=== PATIENT | female | born 1995 | race Caucasian/White ===

== ENCOUNTER 2019-10-27 10:16 | Observation (INO) | payer OTHER ==
[~2019-10-27] VITALS: Ht 170.2 cm; Wt 109.4 kg
--- NOTE | 2019-10-27 11:35 | NUR ---
PATIENT ARRIVED TO ROOM 322-2 VIA EMS. PATIENT SETTELED INTO ROOM.
[2019-10-27 12:10] VITALS: BP 114/54; PULSE 59; TEMP 98.2
--- NOTE | 2019-10-27 12:23 | NUR ---
NOTIFIED OF PATIENT ARRIVAL TO ROOM 322-2. NO ORDERS AT THIS TIME.
[2019-10-27] MEDS ORDERED: EFFEXOR 75M75 MG/TAB PO (12:39)
[2019-10-27] MEDS ORDERED: MOTRIN 800800 MG/TAB PO (12:40)
[2019-10-27] MEDS ORDERED: MAGNESIUM200 MG PO (12:40)
--- NOTE | 2019-10-27 14:07 | NUR ---
PATIENT REPORTS FEELING NAUSEATED AFTER RECEIVING IV ANTIBIOTIC. PATIENT GIVEN PRN IV ZOFRAN. WILL CONTINUE TO MONITOR.
[2019-10-27 15:12] VITALS: BP 125/56; PULSE 63; TEMP 98.8
[2019-10-27 16:10] VITALS: BP 125/56; PULSE 63; TEMP 98.8
--- NOTE | 2019-10-27 16:30 | NUR ---
VORB PHENERGAN 12.5 MG IV Q6H PRN FROM DR. CHUNG TO THIS NURSE.
--- NOTE | 2019-10-27 17:15 | NUR ---
PATIENT GIVEN PRN IV PHENERGAN AFTER EPISODE OF EMESIS WITHOUT ANY RELIEF FROM IV ZOFRAN. WILL CONTINUE TO MONITOR.
--- NOTE | 2019-10-27 18:33 | NUR ---
PATIENT STATES THAT SHE TAKES AMBIEN AT BEDTIME. PATIENT DID NOT REPORT IT IN HER MEDICATION REVIEW. DR. CHUNG CALLED AND NOTIFIED. TORB TO CONTINUE HOME DOSE OF AMBIEN 10 MG PO QHS.
[2019-10-27 19:27] VITALS: BP 101/58; PULSE 67; TEMP 99.1
--- NOTE | 2019-10-27 22:28 | NUR ---
IN TO ASSESS PATIENT. SHE IS ON THE PHONE WITH HER SIGNIFICANT OTHER AND THE BABY WAS CRYING. SHE HAD CALLED OUT FOR PAIN MEDICATION. WHEN NURSE ENTERED WITH TYLENOL PATIENT GAVE HER A WEIRD LOOK. PATIENT SAID THE STUFF IN MY IV. THIS NURSE EDUCATED PATIENT ABOUT WORKING UP THE LADDER ON PAIN MEDICATION TO SEE WHAT HELPS WITH THE PAIN. EDUCATED THE PATIENT THAT IF SHE IS STILL HAVING PAIN TO LET ME KNOW AND WE CAN GO FROM THERE
[2019-10-28] VITALS (14 sets, daily range): BP systolic 109–151; BP diastolic 53–94; PULSE 50–86; TEMP 97.9–99.2
--- NOTE | 2019-10-28 03:40 | NUR ---
PATIENT CALLED AND REQUESTED PAIN MEDICATIONS. NURSE IN ROOM TO VISIT WITH PATIENT. TO THIS NURSE IT SEEMED IF TYLENOL WORKED FOR THE PATIENT BECAUSE AFTER GIVING THE DOSE SHE DID NOT CALL COMPLAINING OF ANY PAIN. SHE SAID IT DID NOT HELP BUT SHE FELL ASLEEP. SAID THE PAIN WAS WORSE NOW. PRN MORPHINE WAS GIVEN
--- NOTE | 2019-10-28 06:03 | NUR ---
PATIENT TOOK TYLENOL AT HS AND THEN FELL ASLEEP. SAID THAT THE TYLENOL DID NOT HELP WITH HER PAIN AT ALL THOUGH. PATIENT WAS ABLE TO SLEEP THROUGH THE NIGHT AND HAS BEEN VERY SLEEPY THROUGH THE SHIFT. DENIES ANY NEEDS AT THIS TIME. WILL REPORT OFF TO DAY SHIFT.
[2019-10-28 07:04] LABS: HEMATOCRIT 37.4 % (37.0-47.0); HEMOGLOBIN 11.6 g/dl (12.5-16.0); MEAN CELL VOLUME 89 fl (80.0-100.0); MEAN CORPUSCULAR HEMOGLOBIN 28 pg (27.0-31.0); MEAN CORPUSCULAR HGB CONC 31 g/dl (33.0-37.0); PLATELET COUNT 276 K/mm3 (130-400); RED BLOOD COUNT 4.22 M/mm3 (4.10-5.30); REDCELL DISTRIBUTION WIDTH-CV 15.7 % (11.5-14.5)
[2019-10-28 07:13] LABS: ALBUMIN 3.2 gm/dL (3.5-5.0); BILIRUBIN,TOTAL 0.5 mg/dL (0.0-1.0); CALCIUM 8.2 mg/dL (8.4-10.2); CREATININE, serum 0.9 (0.52-1.25); POTASSIUM 3.9 mmol/L (3.4-5.0); TOTAL PROTEIN 6.2 gm/dL (6.4-8.2)
--- NOTE | 2019-10-28 09:07 | NUR ---
SW met with the patient to discuss discharge plan. The patient lives in [place] with her , Renan (ph#[phone]), and two children. She reports independence with ADLs and does not have any DME. The patient's PCP is Dr. Haley Simpson and she receives her medications at [facility]. She reports no difficulties obtaining her meds. The patient does not have advanced directives and she was not interested in completing them at this time. The patient plans to return home with her family upon discharge. No additional needs at this time.
--- NOTE | 2019-10-28 09:39 | NUR ---
rounded, plans for the Or today. Patient understanding. Patient up to the shower. She denies nausea & pain at this time. She is Npo. She has concerns about taking her effexor, she has missed it for a few days & is feeling off. Reassured her it is ordered & I will get it to her after surgery today.
--- NOTE | 2019-10-28 12:28 | NUR ---
Initial visit; Patient thanked Hydro Mechanic for looking in on her and offering God's blessings.
[2019-10-28] MEDS ORDERED: ULTRAM 50MG TAB50 MG PO (13:21)
--- NOTE | 2019-10-28 19:47 | NUR ---
Patient sitting up in the chair. She has struggled with pain post op. made aware. Her script for Ultram was called into home pharmacy of choice, [facility] in [place]. Morphine & [place] for pain management,see E[facility]. She is feeling better now, but concerns about discharging home tonight. container maker doctor made aware. She tolerated her dinner tray. Denies nausea. Iv to Int. SHe has voided. Lap site x4 edges well approximated. Scds. Bedside report to Queta MAXWELL
[2019-10-29 04:01] VITALS: BP 140/88; PULSE 57; TEMP 98.5
--- NOTE | 2019-10-29 05:48 | NUR ---
PATIENT HAD A PRETTY QUITE NIGHT. PATIENT HAD A COUPLE DOSES OF PAIN MEDICATION. IV IS INT. PATIENT IS TOLERATING FLUIDS AND FOOD. PATIENT IS WANTING TO GO HOME TODAY. WILL REPORT OFF TO DAY SHIFT.
[2019-10-29 07:04] VITALS: BP 131/82; PULSE 69; TEMP 98
--- NOTE | 2019-10-29 08:29 | NUR ---
Patient ambulating in room independently. Alert and oriented x 3. Assessment complete. Lap sites x 4 with edges well approximated. States pain 5/10 to abdomen, medications given per orders. Denies further needs at this time.
--- NOTE | 2019-10-29 09:30 | NUR ---
Discharge education provided to patient. Educated on signs and symptoms of infection and when to call provider. Patient states she was given prescription for ultram yesterday, spouse already picked up prescription. Educated on medication and medication safety. All questions answered. Patient discontinued IV by herself. Denies further needs at this time. Patient will call when spouse is here to poultry picking machine tender patient.
--- NOTE | 2019-10-29 09:37 | NUR ---
Patient ambulated out with surgical staff. No further needs at this time.
== END 2019-10-29 09:37 | disposition home or self-care (01) ==
LOC: MEDICAL 10:16 → SURG 11:45
PROVIDERS: ADMIT Surgery
DX: K80.10 Calculus of gallbladder with chronic cholecystitis without obstruction (principal); K85.10 Biliary acute pancreatitis without necrosis or infection; F32.9 Major depressive disorder, single episode, unspecified; D64.9 Anemia, unspecified
CPT/HCPCS: G0378; J0330; J0696; J1100; J1885; J2270; J2405; J2550; J2704; J3010; J7120; Q9967